=== PATIENT | male | born 1970 | race Caucasian/White ===

== ENCOUNTER 2016-04-18 01:08 | Emergency (ER) | payer SELFPAY ==
[2016-04-18] MEDS ORDERED: ONDANSETRON HCL/PF 4 MG/ 2ML VIAL IVP ONE (01:21)
[2016-04-18] MEDS ORDERED: HYDROmorphone HCL/PF 1 MG/ML DISP.SYRIN IVP ONE ×2 (01:23→01:47)
--- NOTE | 2016-04-18 01:28 | ED Physician Documentation ---
General Adult - HISTORIAN Historian: patient - HPI Stated Complaint: abd pain Chief Complaint: General Adult Onset: hours (1) Timing: still present Severity: moderate Further Comments: yes (Pt is a 46 yo male who had been drinking 4 large bottles of hard alcoholic cider in a bar when he developed severe pain after coughing violently. Pt states that he has had a cough for 3 weeks and that he did have some pain with coughing for several days, but tonight the pain became very severe after a violent coughing episode. Pt intitially described pain as abdominal and stated that he had not had a bm for 3 days. Later he said that he had tearing pain in his abdomen. Pt had had nausea with dry heaves, he said. Pt has hx diverticulitis and R shoulder surgery. No other med hx. Pt has not had any abd surgeries.) - ROS CONST: no problems EYES/ENT: none CVS/RESP: cough GI/: nausea MS/SKIN/LYMPH: none - PAST HX Past History: other (diverticulitis) Other History: other (R shoulder surgery) Allergies/Adverse Reactions: Allergies Allergy/AdvReac Type Severity Reaction Status Date / Time No Known Drug Allergies Allergy Verified 04/18/16 02:02 Home Medications: Ambulatory Orders Medication Instructions Recorded NK [NK] 04/18/16 - SOCIAL HX Smoking History: cigarettes - FAMILY HX Family History: No - VITAL SIGNS Vital Signs: Vital Signs Temp Pulse Resp BP Pulse Ox 137/80 05/04/15 15:05 - REVIEWED ASSESSMENTS Nursing Assessment Reviewed: Yes Vitals Reviewed: Yes Progress - Progress Progress: GI cocktail no change 1.5 L NS IVF Zofran 4 mg IV Dilaudid 0.5 mg IV Toradol 30 mg IV Pepcid 20 mg IV improved Azithromycin 500 mg po in ER, for cough x 3 weeks. Pt's initial complaint of abd pain, no bm x 3 days, and "tearing pain" prompted exam with abd/pelvis CT with IV contrast. Study was wnl. Labs including d dimer were wnl, except for ETOH which was 261. Pt was much improved after tx with pepcid and Toradol. ? GERD or PUD, but pt later stopped complaining of abd pain and complained of pain over lower R ribs, with movement and especially with coughing. Pt then stated that sx occurred after violent coughing episode. Rib x-ray did not reveal fx. Pt may have an occult rib fx from violent coughing. Rx [place] (5/325) 1-2 po q 4-6h prn #20. To be filled in am for possible rib fx. Rx Azithromycin 250 mg po qd x 5 days. for cough x 3 weeks. Pt may take otc pepcid or prilosec if some sx are due to GERD. Pt's changing story, make dx unclear, but exam and labs r/o serious pathology such as bowel obstruction, aaa, thrombus. ED Results Lab/Radiology - Orders Orders: ED Orders Category Date Time Status ABD SERIES PA CHEST [RAD] Stat Exams 04/18/16 Ordered AMYLASE Routine Lab 04/18/16 Ordered CBC/PLATELET/DIFF Routine Lab 04/18/16 Ordered CMP Routine Lab 04/18/16 Ordered ETHANOL MEDICAL USE ONLY Stat Lab 04/18/16 Ordered URINALYSIS Routine Lab 04/18/16 Ordered 0.9 % Sodium Chloride [Normal Saline] 1,000 ml Med 04/18/16 01:30 Ordered IV Q10H HYDROmorphone HCL/PF [Dilaudid] Med 04/18/16 01:23 Stop Req 1 mg IVP NOW ONE Ondansetron HCl/Pf [Zofran 4 mg/2 ml] Med 04/18/16 01:21 Once 4 mg IVP NOW ONE General Adult Physical Exam - PHYSICAL EXAM GENERAL APPEARANCE: moderate distress EENT: eye inspection normal, pharynx normal NECK: normal inspection, supple RESPIRATORY: no resp distress, other (R lower chest wall tenderness) CVS: reg rate & rhythm, heart sounds normal ABDOMEN: soft, no organomegaly, tenderness (epigastric), decreased BS BACK: normal inspection, no CVA tenderness SKIN: warm/dry, normal color EXTREMITIES: non-tender, normal range of motion, no evidence of injury NEURO: oriented X3, motor nml, sensation nml Discharge Clincal Impression: Persistent cough, possible occult rib fracture, possible GERD Referrals: Primary Doctor,No [Primary Care Provider] - Home Medications: Ambulatory Orders NK [NK] 04/18/16 Condition: Good Disposition: 01 HOME, SELF-CARE Decision to Admit: NO Decision Time: 04:28
[2016-04-18] MEDS ORDERED: 0.9 % SODIUM CHLORIDE 1,000 ML IV ONE ×2 (01:29→02:59)
[2016-04-18] MEDS ORDERED: 0.9 % SODIUM CHLORIDE 1,000 ML IV SCH ×2 (01:30→03:30)
[2016-04-18] MEDS ORDERED: HYDROmorphone HCL/PF 1 MG/ML DISP.SYRIN ONE (01:30)
[2016-04-18] MEDS ORDERED: MAG HYDROX/AL HYDROX/SIMETH 30 ML, Lidocaine 2%Visc 15ml 20 MG, PHENobarb/HYOSCY/ATROPI... PO ONE ×3 (01:38)
[2016-04-18] MEDS ORDERED: Lidocaine 2%Visc 15ml 20 MG/ML UDC ONE (01:38)
[2016-04-18] MEDS ORDERED: MAGNESIUM HYDROXIDE/AL HYDROX 30 ML UDC PO ONE (01:38)
[2016-04-18 01:42] LABS: BASOPHILS % 0.5 (0.0-1.5); EOSINOPHILS % 4.2 % (0.0-6.8); LYMPHOCYTES # 4.7 # k/uL (0.6-4.0); MEAN CORPUSCULAR HEMOGLOBIN 31.4 pg (28.0-34.0); MONOCYTES # 0.4 # k/uL (0.0-0.9); MONOCYTES % 4.5 % (0.0-11.0); NEUTROPHILS # 3.5 # k/uL (1.4-7.7)
[2016-04-18 01:54] LABS: eGFR (African) > 60; eGFR (Non-African) > 60
--- NOTE | 2016-04-18 03:01 | Diagnostic Imaging Report ---
[facility] [address] [facility].[address] [address] ~ ~ ~ ~ Report Submission Date: Apr 18, 2016 2:36:35 AM CAMBERING MACHINE OPERATOR Patient ~ Study Name: LILLI MARK ~ Date: Apr 18, 2016 2:16:28 AM CAMBERING MACHINE OPERATOR ~ Modality Type: CR Gender: M ~ Description: CHEST : 72 ~ Institution: [facility] Physician: LUKE BARNARD ~ ~ ~ ~ Chest , 1 view History: ABD PAIN, NO BM X 3 DAYS, COUGHING Findings: The heart size is normal. The lungs are clear. There is no pleural effusion or pneumothorax identified. Surgical changes are present within the right proximal humerus. Impression: 1. No acute pulmonary disease. ~ Electronically signed on Apr 18, 2016 2:36:35 AM CAMBERING MACHINE OPERATOR by: Ady THOMPSON
[2016-04-18] MEDS ORDERED: FAMOTIDINE/PF 20 MG/2 ML VIAL IVP ONE (03:02)
--- NOTE | 2016-04-18 03:02 | Diagnostic Imaging Report ---
Name: LILLI MARK ~~ ~~ : 72 ~~ Acc #: [id number]~~ DOS: Apr 18, 2016 2:36:39 AM JUICE SCALEMAN ~~ Mod: CT\SR ~~ Desc: CT ABD W/ CONTRAST 2 of 2 [facility] [address] [facility] [address] [place] [address]. [id number] ~ ~ ~ ~ Report Submission Date: Apr 18, 2016 2:59:00 AM JUICE SCALEMAN Patient ~ Study Name: LILLI MARK ~ Date: Apr 18, 2016 2:36:39 AM JUICE SCALEMAN ~ Modality Type: CT\SR Gender: M ~ Description: CT ABD W/ CONTRAST : 72 ~ Institution: [facility] Physician: LUKE BARNARD ~ ~ ~ ~ CT ABD W/ CONTRAST History: ABDOMINAL PAIN; NO BM X 3 DAYS Technique: Transaxial computed tomographic images of the abdomen and pelvis were obtained following administration of~intravenous contrast according to standard protocol. Findings: Lung bases are clear. The heart size is normal. The liver is normal in density. The gallbladder, pancreas, spleen, adrenals, and bilateral kidneys are normal. There is no bowel wall thickening or dilation identified. The appendix is normal. Diverticulosis is present without CT evidence of diverticulitis. There is trace atherosclerosis of the normal-sized aorta. No adenopathy is present. The bladder is normal. There is no free fluid. The osseous structures demonstrate mild intervertebral disc space narrowing at L4/L5 and L5/S1. Impression: 1. Diverticulosis without evidence of diverticulitis. 2. Normal appendix. 3. No evidence of bowel obstruction. 4. Additional findings include mild atherosclerosis and minimal lumbar spondylosis. ~ Electronically signed on Apr 18, 2016 2:59:00 AM JUICE SCALEMAN by: Ady THOMPSON
[2016-04-18] MEDS ORDERED: KETOROLAC TROMETHAMINE 30 MG/1ML VIAL IVP ONE (03:07)
[2016-04-18] MEDS ORDERED: KETOROLAC TROMETHAMINE 30 MG/1ML VIAL ONE (03:08)
[2016-04-18] MEDS ORDERED: AZITHROMYCIN 250 MG TABLET PO ONE ×2 (04:27→04:28)
[2016-04-18 05:10] VITALS: BP 110/75
[2016-04-18 05:41] LABS: APPEARANCE,URINE CLEAR (CLEAR); COLOR,URINE YELLOW (YELLOW); OCCULT BLOOD,URINE TRACE-INTACT (NEGATIVE); PH URINE 5.5 (5.0 - 8.0); UROBILINOGEN URINE 0.2 Eu (0.2-1.0)
--- NOTE | 2016-04-18 06:46 | Diagnostic Imaging Report ---
[facility] [address] [facility].[address] [address] ~ ~ ~ ~ Report Submission Date: Apr 18, 2016 4:15:51 AM CROP PEST CONTROL SPECIALIST Patient ~ Study Name: LILLI MARK ~ Date: Apr 18, 2016 4:00:51 AM CROP PEST CONTROL SPECIALIST ~ Modality Type: CR Gender: M ~ Description: CHEST : 72 ~ Institution: [facility] Physician: LUKE BARNARD ~ ~ ~ ~ Right rib series. History: Sharp right anterior rib pain with cough Findings: The right lung is clear. There is no evidence of rib fracture or displacement. There is evidence of previous surgery in the proximal humerus. Impression: 1. No evidence of rib fracture ~ Electronically signed on Apr 18, 2016 4:15:51 AM CROP PEST CONTROL SPECIALIST by: Ady THOMPSON
== END 2016-04-18 04:45 | disposition home or self-care (01) ==
LOC: ED 01:08
DX: R05 Cough (principal); R07.89 Other chest pain
CPT/HCPCS: 71010; 71100; 74177; 80053; 80320; 81002; 82150; 85025; 85379; A9270; J1170; J1885; J2405; J7030; 96374; 96375; 99283; S0028; G0480; S1016